=== PATIENT | male | born 2000 | race Caucasian/White ===

== ENCOUNTER 2025-02-27 16:56 | Emergency (ER) | payer BC, SELFPAY ==
[2025-02-27 17:13] VITALS: BP 132/82; PULSE 60; RESP 18; TEMP 37; O2SAT 97; BMI 25.3
--- NOTE | 2025-02-27 17:16 | XR_ITS ---
Examination: Hand, left 3 views Technique: Hand AP, oblique, lateral 3 views Date and time of exam: January, 2024, 174 hrs. Indications: Injury to the hand today, hand pain Findings: No acute fracture. No dislocation No foreign body Impression: No acute fracture
--- NOTE | 2025-02-27 17:17 | EDRME_ITS ---
Rapid Medical Screening Exam [facility] Arrival date/time: 02/27/25 16:56 24-year-old male with no known medical history presents to the emergency room with a chief complaint of left hand tenderness after a ground-level fall that occurred at work today. I have greeted and performed a focused initial assessment of this patient. A comprehensive ED assessment and evaluation of the patient, analysis of all test results, and completion of the medical decision making process will be conducted by additional ED providers. Chief Complaint: Hand/Wrist Problems Vital signs: Vital Signs Temperature 98.6 F 02/27/25 17:13 Pulse Rate 60 02/27/25 17:13 Respiratory Rate 18 02/27/25 17:13 Blood Pressure 132/82 H 02/27/25 17:13 Pulse Oximetry (%) 97 02/27/25 17:13 Oxygen Delivery Method Room Air 02/27/25 17:13 Vital signs reviewed by provider: Yes
--- NOTE | 2025-02-27 19:13 | PD.EDRME ---
Rapid Medical Screening Exam RME Arrival date/time: 02/27/25 16:56 02/27/25 16:56 24-year-old male with no known medical history presents to the emergency room with a chief complaint of left hand tenderness after a ground-level fall that occurred at work today. I have greeted and performed a focused initial assessment of this patient. A comprehensive ED assessment and evaluation of the patient, analysis of all test results, and completion of the medical decision making process will be conducted by additional ED providers. Chief Complaint: Hand/Wrist Problems Time Seen by Provider: 02/27/25 19:59 Vital signs: Vital Signs Temperature 98.6 F 02/27/25 17:13 Pulse Rate 60 02/27/25 17:13 Respiratory Rate 18 02/27/25 17:13 Blood Pressure 132/82 H 02/27/25 17:13 Pulse Oximetry (%) 97 02/27/25 17:13 Oxygen Delivery Method Room Air 02/27/25 17:13 RME Narrative: 02/27/25 16:56 24-year-old male with no known medical history presents to the emergency room with a chief complaint of left hand tenderness after a ground-level fall that occurred at work today. I have greeted and performed a focused initial assessment of this patient. A comprehensive ED assessment and evaluation of the patient, analysis of all test results, and completion of the medical decision making process will be conducted by additional ED providers.
[2025-02-27 20:02] VITALS: BP 136/82; PULSE 67; RESP 18; TEMP 36.8; O2SAT 100
--- NOTE | 2025-02-27 20:05 | EDNOTE_ITS ---
Upper Extremity Injury RME/HPI General Chief Complaint: Hand/Wrist Problems Stated Complaint: L) HAND INJURY Time Seen by Provider: 02/27/25 19:59 Arrival date/time: 02/27/25 16:56 RME / HPI RME / HPI narrative: 02/27/25 16:56 24-year-old male with no known medical history presents to the emergency room with a chief complaint of left hand tenderness after a ground-level fall that occurred at work today. I have greeted and performed a focused initial assessment of this patient. A comprehensive ED assessment and evaluation of the patient, analysis of all test results, and completion of the medical decision making process will be conducted by additional ED providers. ------ Dr. Lazar?s Main ED Evaluation: 24yo male with no significant past medical history presents to the ED for a left hand injury. Patient was standing on a log at work when the log came out from under him, causing him to fall, land on his buttocks, and hit the palm of his hand on a piece of metal. No head strikes or loss of consciousness. Patient denies any other injuries. NKA. Patient's last tetanus shot was 3-4 years ago. Related Data Previous Rx's ?Medication ?Instructions ?Recorded Cyclobenzaprine * (FLEXERIL *) 10 mg PO Q8HR PRN spasm #20 tabs 10/20/15 ibuprofen 600 mg tablet 600 mg PO Q6HR PRN PAIN #60 tabs 10/20/15 tramadol 50 mg tablet (Ultram) 50 mg PO Q6HR PRN sever e pain #30 10/20/15 tabs Allergies Allergy/AdvReac Type Severity Reaction Status Date / Time No Known Allergies Allergy Verified 02/27/25 16:59 Review of Systems Review of Systems Systems Reviewed: All systems reviewed, normal except as documented ED Exam Narrative Physical exam: Generally patient is alert in no obvious distress, heart regular rate and rhythm, lungs clear to auscultation equal bilaterally, abdomen soft bowel sounds present nondistended nontender, head is normocephalic atraumatic, neck is nontender, musculoskeletal exam shows no thoracic or lumbar bony deformity or tenderness noted, extremities show what appears to be a puncture wound to the palmar surface of the left hand at the mid metacarpal. Patient has full range of motion at the metacarpal phalangeal joints and interphalangeal joints. No obvious deformity. No active bleed. No gross contamination. Course Quality Measures none Orders Category Date Time Status Wound Care X1 Care 02/27/25 17:16 Active XR hand comp LT min 3V Stat Exams 02/27/25 17:16 Completed Vital Signs Vital signs: Vital Signs Temperature 98.6 F 02/27/25 17:13 Pulse Rate 60 02/27/25 17:13 Respiratory Rate 18 02/27/25 17:13 Blood Pressure 132/82 H 02/27/25 17:13 Pulse Oximetry (%) 97 02/27/25 17:13 Oxygen Delivery Method Room Air 02/27/25 17:13 Extremity Injury MDM Narrative MDM Narrative:: Scribe Attestation: 02/27/25 - Kelle Wilburn am scribing for and in the presence of Dr. Lazar. Differential diagnosis: Fracture, dislocation, foreign body, puncture wound X-rays of the left hand show no fracture no dislocation. Patient's last tetanus shot was 3 to 4 years ago. Patient feels he may return to work at any time. Patient will be discharged to keep wound clean. Return for increasing redness pain or if pus develops from the wound. Patient is cleared to return to work. Patient data External records reviewed:: [facility] previous records (Per chart review, patient has no relevant previous ED visits.) Clinical information provided by:: patient Social determinants that could affect healthcare access:: none Patient has the following chronic illnesses:: none How is presenting disease/condition affected by chronic disease/condition?: no chronic disease Evaluation data The following diagnostics were reviewed and interpreted by me:: radiology exam(s) Lab and/or radiology exams considered but not ordered:: none Interpretation Summary: [facility] Report Signed Patient: BILL NUNEZ Med Record#: [id number] Birthdate: 2000 Age/Sex: 24 / M Location: [facility] Attending Dr: Ordering Physician: Chadwick Rois Date of Service: 02/27/25 Procedure(s): XR hand comp LT min 3V Accession Number(s): [id number] cc: Chadwick Rios; Jeremy Oliveira MD; Mauricio Dior MD~ Examination: Hand, left 3 views Technique: Hand AP, oblique, lateral 3 views Date and time of exam: January, 2024, 1740 hrs. Indications: Injury to the hand today, hand pain Findings: No acute fracture. No dislocation No foreign body Impression: No acute fracture Dictated By: Mauricio Dior MD Signed By: <Electronically signed by Mauricio Dior MD in OV> 02/27/25 1808 Medications / Prescriptions Medications or Prescriptions considered but not ordered:: Tetanus considered, but patient's status is UTD. Medication administrations:: none Consultations Consultation(s) initiated? (list below): No Diagnosis Upper Extremity Injury Differential Diagnosis: other (See MDM.) Most likely diagnosis given after review of the tests above:: see clinical impression below Admission Indicated Admission indicated?: not indicated Admission Request Was there a request for admission?: No Disposition Plan Disposition Plan: Discharge Discharge Attestation Discharge Attestation: The patient and all family members were given an opportunity to ask questions and understood the discharge instructions. Discharge instructions specifically effects, indications for sooner follow up or return to the emergency department, and the expected course of current diagnosis. Patient condition: Stable Discharge Plan Plan Patient Disposition: HOME (Self Care) Prescriptions/Referrals Prescriptions/Med Rec: No Action tramadol [Ultram] 50 MG tablet 50 mg PO Q6HR PRN (Reason: severe pain) Qty: 30 0RF Rx Instructions: FOR PAIN, NOT TO EXCEED 8 TABS IN 24 HRS ibuprofen 600 MG tablet 600 mg PO Q6HR PRN (Reason: PAIN) Qty: 60 0RF Cyclobenzaprine * (FLEXERIL *) 10 MG tablet 10 mg PO Q8HR PRN (Reason: spasm) Qty: 20 0RF Referrals: Jeremy Oliveira MD [Primary Care Provider, Family Practice] - In 1 week Problem List Clinical Impression: Puncture wound Patient/Caregiver Discharge Instructions Additional Instructions: Keep wound clean. Return if wound becomes red, painful or pus develops from the wound. Patient is okay to return to work. Print Language: Greenlandic Stand Alone Forms: Aliyah Award Info., Patient Portal Info Letter
[2025-02-27 20:16] VITALS: BP 145/85; PULSE 85; RESP 14; TEMP 37; O2SAT 99
== END 2025-02-27 20:17 | disposition home or self-care (01) ==
PROVIDERS: Emergency Provider Emergency Medicine; PCP Family Medicine
DX: S61.432A Puncture wound without foreign body of left hand, initial encounter (principal); W18.30XA Fall on same level, unspecified, initial encounter; Y99.0 Civilian activity done for income or pay
CPT/HCPCS: 73130; 99284

== ENCOUNTER 2025-05-20 22:33 | Emergency (ER) | payer BC, SELFPAY ==
[2025-05-20 22:34] VITALS: BMI 25.0
[2025-05-20 23:52] VITALS: BP 130/81; PULSE 50; RESP 20; TEMP 36.5; O2SAT 99
--- NOTE | 2025-05-20 23:54 | PD.EDANIML ---
ED Animal Bite RME/HPI General Chief Complaint: Animal Bite Stated Complaint: BIT BY CAT ON LEFT HAND Time Seen by Provider: 05/20/25 22:36 Arrival date/time: 05/20/25 22:33 This is a case of 24-year-old male with no medical history came in in the emergency room due to multiple puncture wound 4 on the left index finger secondary to cat bite today patient stated that the cat was on by his sister with rabies vaccine patient tetanus shot is up-to-date Limitations: no limitations Related Data Previous Rx's ?Medication ?Instructions ?Recorded Cyclobenzaprine * (FLEXERIL *) 10 mg PO Q8HR PRN spasm #20 tabs 10/20/15 ibuprofen 600 mg tablet 600 mg PO Q6HR PRN PAIN #60 tabs 10/20/15 tramadol 50 mg tablet (Ultram) 50 mg PO Q6HR PRN severe pain #30 10/20/15 tabs amoxicillin 875 mg-potassium 1 tab PO BID #20 tabs 05/20/25 clavulanate 125 mg tablet ibuprofen 800 mg tablet 800 mg PO Q8H PRN pain #20 tabs 05/20/25 mupirocin 2 % topical ointment 1 applic topical BID #22 grams 05/20/25 (Centany) Allergies Allergy/AdvReac Type Severity Reaction Status Date / Time No Known Allergies Allergy Verified 02/27/25 16:59 Review of Systems Review of Systems Systems Reviewed: All systems reviewed, normal except as documented Constitutional Constitutional: Reports system reviewed and no additional complaints, except as documented and Reports as per HPI Cardiovascular Cardiovascular: Reports system reviewed and no additional complaints, except as documented and Reports as per HPI Respiratory Respiratory: Reports system reviewed and no additional complaints, except as documented and Reports as per HPI Gastrointestinal Gastrointestinal: Reports system reviewed and no additional complaints, except as documented and Reports as per HPI Musculoskeletal Musculoskeletal: Reports system reviewed and no additional complaints, except as documented and Reports as per HPI Neurologic Neurologic: Reports system reviewed and no additional complaints, except as documented and Reports as per HPI Past Medical History Past Medical History CARDIAC: Negative Congestive Heart Failure RESPIRATORY: Negative Chronic Obstructive Pulmonary Disease (COPD) GENITOURINARY: Negative Renal Disease ENDOCRINE: Negative Diabetes Mellitus Type 1 or Diabetes Mellitus Type 2 Social History SMOKING STATUS: Never smoker ED Exam General Limitations: Present no limitations General appearance: Present alert, in no apparent distress and other (Patient is awake alert oriented not in distress nontoxic looking well-hydrated well-nourished) Head Head exam: Present atraumatic, normocephalic and normal inspection Eye Eye exam: Present normal appearance, PERRL and EOMI ENT ENT exam: Present normal exam, normal oropharynx and mucous membranes moist Neck Neck exam: Present normal inspection, full ROM and trachea midline; Absent tenderness, meningismus, lymphadenopathy or thyromegaly Chest Chest inspection: Present normal inspection and symmetric chest wall rise; Absent tenderness Respiratory Respiratory exam: Present normal lung sounds bilaterally; Absent respiratory distress, wheezes, stridor, accessory muscle use or prolonged expiratory phase Cardiovascular Cardiovascular exam: Present regular rate, normal rhythm and normal heart sounds; Absent bradycardia, tachycardia, irregular rhythm, systolic murmur or diastolic murmur Abdominal Exam Abdominal exam: Present soft and normal bowel sounds; Absent distention, tenderness, guarding, rebound, rigidity, diminished bowel sounds, hyperactive bowel sounds, hypoactive bowel sounds or organomegaly Extremities Exam Extremities exam: Present normal inspection and full ROM Back Exam Back exam: Present normal inspection and full ROM Neurological Exam Neurological exam: Present alert, oriented X3, CN II-XII intact, normal gait and reflexes normal; Absent motor sensory deficit Psychiatric Psychiatric exam: Present normal affect and normal mood Skin Skin exam: Present warm, dry, intact, normal color and other (Noted a multiple punctured wound on the left index finger 4 total no bleeding no foreign body no bone or tendon injury ROM intact pulses were full and equal capillary refill less than 2 seconds sensory intact nail is intact no abscess no cellular) Course Quality Measures none Orders Category Date Time Status Amoxicillin/Pot Clav 875 [Augmentin 875] Med 05/20/25 23:50 Discontinued 1 tab PO X1 ONE Bacitracin Oint pkt Med 05/20/25 23:50 Discontinued 1 gm TOP X1 ONE Ibuprofen Tab [Motrin Tab] Med 05/20/25 23:50 Discontinued 800 mg PO X1 ONE TET,DIP/PERT AC (Adult)-Tdap [Boostrix Adult (Tdap) Med 05/20/25 23:50 Discontinued Vacc] 0.5 ml IMI .ONCE ONE Vital Signs Vital signs: Vital Signs Temperature 97.7 F 05/20/25 23:52 Pulse Rate 50 L 05/20/25 23:52 Respiratory Rate 20 05/20/25 23:52 Blood Pressure 130/81 05/20/25 23:52 Pulse Oximetry (%) 99 05/20/25 23:52 Oxygen Delivery Method Room Air 05/20/25 23:52 Oxygen saturation 99% in room air Animal Bite MDM Narrative MDM Narrative:: This is a case of 24-year-old male with no medical history came in in the emergency room due to multiple puncture wound 4 on the left index finger secondary to cat bite today patient stated that the cat was on by his sister with rabies vaccine patient tetanus shot is up-to-date physical examination patient is awake alert oriented not in distress nontoxic looking well-hydrated well-nourished patient noted to have 4 multiple puncture wounds on the left index finger no bleeding no foreign body no bone or tendon injury ROM intact neurovascular intact no abscess no cellulitis wound was cleaned with normal saline and Betadine and applied triple antibiotic and covered with nonadherent gauze patient tolerated well the wound care patient was given Augmentin to prevent infection Tdap patient will follow-up with PCP in 2 days for reevaluation and wound check and for any signs and symptoms infection return to the emergency room immediately or call 911 Patient was discharged with comfortable condition walking with stable gait. Patient verbalized no further complains explained diagnosis and answered patient question. Patient is comfortable with the proposed management plan including the need to follow up with his/her primary care physician and any specialist if applicable Discussed patient for any urgent condition or worsening sx, He/She needed to go to emergency room immediately or call 911. Patient acknowledge the responsibility to follow up as instructed and to monitor her/his symptoms. For any persistence of the symptoms for more than 3-5 days return precaution advised. Discussed the result of the test and was given printed discharge instruction Patient data External records reviewed:: [facility] previous records Clinical information provided by:: patient Social determinants that could affect healthcare access:: none Patient has the following chronic illnesses:: None How is presenting disease/condition affected by chronic disease/condition?: no chronic disease Evaluation data The following diagnostics were reviewed and interpreted by me:: other (specify) (None) Lab and/or radiology exams considered but not ordered:: None Interpretation Summary: None Medications / Prescriptions Medications or Prescriptions considered but not ordered:: Given Medication administrations:: Medication Administration History Discontinued Medications Amoxicillin/Clavulanate Potassium (Amoxicillin/Pot Clav 875 Tablet) 1 tab PO X1 ONE Stop: 05/20/25 23:51 Bacitracin (Bacitracin Oint 1 Gm Packet) 1 gm TOP X1 ONE Stop: 05/20/25 23:51 Diphtheria/Tetanus/Acell Pertussis (Diphth,Pertuss(Acell),Tet Vac 0.5 Ml Syr- Adult) 0.5 ml IMi .ONCE ONE Stop: 05/20/25 23:51 Ibuprofen (Ibuprofen Tab 400 Mg Tablet) 800 mg PO X1 ONE Stop: 05/20/25 23:51 Given Consultations Consultation(s) initiated? (list below): No Diagnosis Differential diagnosis animal bite: cat bite Most likely diagnosis given after review of the tests above:: Multiple puncture wound left index finger secondary to cat bite Admission Indicated Admission indicated?: not indicated Explain why admission is indicated or not indicated:: Not indicated Admission Request Was there a request for admission?: No Admission Attestation Admission request attestation: Not indicated Disposition Plan Disposition Plan: Discharge Discharge Attestation Discharge Attestation: The patient and all family members were given an opportunity to ask questions and understood the discharge instructions. Discharge instructions specifically effects, indications for sooner follow up or return to the emergency department, and the expected course of current diagnosis. Patient condition: Stable Discharge Plan Plan Patient Disposition: HOME (Self Care) Patient condition on transfer: Stable Prescriptions/Referrals Prescriptions/Med Rec: New amoxicillin-pot clavulanate 875-125 mg tablet 1 tab PO BID Qty: 20 0RF ibuprofen 800 mg tablet 800 mg PO Q8H PRN (Reason: pain) Qty: 20 0RF mupirocin [Centany] 2 % ointment 1 applic topical BID Qty: 22 0RF No Action tramadol [Ultram] 50 MG tablet 50 mg PO Q6HR PRN (Reason: severe pain) Qty: 30 0RF Rx Instructions: FOR PAIN, NOT TO EXCEED 8 TABS IN 24 HRS ibuprofen 600 MG tablet 600 mg PO Q6HR PRN (Reason: PAIN) Qty: 60 0RF Cyclobenzaprine * (FLEXERIL *) 10 MG tablet 10 mg PO Q8HR PRN (Reason: spasm) Qty: 20 0RF Problem List Clinical Impression: Cat bite, Multiple puncture wounds Patient/Caregiver Discharge Instructions Education Materials: ED Cat Bite, ED Puncture Wound (General) Additional Instructions: Follow-up with your primary care physician in 2 days for reevaluation and recheck for any worsening symptoms or any emergent concerns such as redness swelling discharge from the wound pain fever chills discoloration return to the emergency room immediately or call 911 take your medication as directed finish the course of antibiotic keep the wound clean and dry Print Language: Lao Stand Alone Forms: Aliyah Award Info., Patient Portal Info Letter PA/INSURANCE CLAIMS SUPERVISOR Supervising Physician PA/INSURANCE CLAIMS SUPERVISOR Supervising Physician: Dr. Lazar
[2025-05-21] MEDS: IBUPROFEN TAB 400 MG TABLET 800 MG PO (00:01)
[2025-05-21] MEDS: AMOXICILLIN/POT CLAV 875 TABLET 1 TAB PO (00:01)
== END 2025-05-21 01:00 | disposition home or self-care (01) ==
LOC: SERX 05-21 00:20
PROVIDERS: Emergency Provider Emergency Medicine; PCP Family Medicine
DX: S61.231A Puncture wound without foreign body of left index finger without damage to nail, initial encounter (principal); W55.01XA Bitten by cat, initial encounter
CPT/HCPCS: 99281; A9270